=== PATIENT | male | born 1995 | race Caucasian/White ===

== ENCOUNTER 2017-09-27 12:56 | Emergency (ER) | payer OTHER, BC ==
[~2017-09-27] VITALS: Ht 188 cm; Wt 81.6 kg
--- OUTSIDE RECORDS SUMMARY | 2017-09-27 13:11 | XMS REPORT | Continuity of Care Document ---
Demographics Preferred Language Unknown Marital Status Unknown Restorationism Affiliation Unknown Race Unknown Ethnic Group Unknown Author Author [facility] Address Unknown Phone Unavailable Allergies Medications Problems Date Dx Coded Attending Type Code Diagnosis Diagnosed By 03/27/2013 381.10 OTITIS MEDIA CHRONIC SEROUS 03/27/2013 477.0 ALLERGIC RHINITIS DUE TO POLLEN 03/27/2013 782.3 Edema Anasarca 03/27/2013 919.5 INSECT BITE INFECTED Procedures Code Description Performed By Performed On J2930 SOLUMEDROL INJ Results Encounters ACCT No. Visit Date/Time Discharge Status Pt. Type Provider Facility Loc./Unit Complaint [id number] 03/27/2013 11:48:00 Document Registration
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
[2017-09-27] MEDS ORDERED: HYDR28.480 TP (13:33)
[2017-09-27] MEDS ORDERED: PIPERACILLIN SODIUM/TAZOBACTAM 4.5 GM in NS (IVPB) 100 ML IV ONE (14:30)
--- NOTE | 2017-09-27 14:42 | Diagnostic Imaging Report ---
PROCEDURE: CT head and CT cervical spine without contrast. TECHNIQUE: Multiple contiguous axial images were obtained through the brain and cervical spine without the use of intravenous contrast. Sagittal and coronal reformations through the cervical spine were then performed. INDICATION: Injury. FINDINGS: CT head: There is no intracranial hemorrhage, edema or mass effect. The brain parenchyma and domingo-white matter differentiation is preserved. No hydrocephalus. No extra-axial fluid collection is seen. The calvarium, the visualized portions of the paranasal sinuses and orbits appear grossly unremarkable. CT cervical spine: There is satisfactory alignment of the posterior spinal line and at the facet joints. There is a preserved vertebral body heights. Disc heights are also preserved. There is no widening of the predental space. The alignment of the lateral masses of C1 and C2 and the atlantooccipital joints is satisfactory. No fracture seen. IMPRESSION: CT head: Unremarkable exam. CT cervical spine: Unremarkable. No fracture seen. Dictated by: Dictated on workstation # [id number]
== END 2017-09-27 14:51 | disposition home or self-care (01) ==
LOC: ER 13:05
DX: S09.90XA Unspecified injury of head, initial encounter (principal); S16.1XXA Strain of muscle, fascia and tendon at neck level, initial encounter; V47.5XXA Car driver injured in collision with fixed or stationary object in traffic accident, initial encounter
CPT/HCPCS: 70450; 72125; 99281

== ENCOUNTER 2018-06-15 00:30 | Emergency (ER) | payer BC, OTHER ==
[~2018-06-15] VITALS: Ht 188 cm; Wt 90.7 kg
[~2018-06-15 00:30] MED LIST: HYDR28.480 TP
[2018-06-15] MEDS: TETRACAINE 0.5% OPHTH SOLN 4 ML BTL (SINGLE DOSE ONLY) ONE (01:00)
[2018-06-15] MEDS: FLUORESCEIN (FLUOR-I-STRIPS) 1 MG STRP ONE (01:00)
[2018-06-15] MEDS ORDERED: RX-CIPROFLOXACIN (CILOXAN) 0.3% OP SOLN 2.5 ML ONE (01:19)
[2018-06-15] MEDS: BSS 15 ML ONE (01:25)
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
[2018-06-15 01:30] VITALS: BP 142/70
[2018-06-15] MEDS: RX-CIPROFLOXACIN (CILOXAN) 0.3% OP SOLN 2.5 ML OP STA (01:32)
--- OUTSIDE RECORDS SUMMARY | 2018-06-15 07:15 | XMS REPORT ---
Author Author DIANA BLEVINS Organization [facility] Address [address] [place] [address] Care Team Providers Care Solution Design And Analysis Manager Name Role Phone DIANA BLEVINS Unavailable PROBLEMS Type Condition ICD9-CM Code [id number] Code Onset Dates Condition Status SNOMED Code Problem Anxiety F41.9 Active 11543705 Problem Absence attack G40.A09 Active 93357408 ALLERGIES No Information ENCOUNTERS Encounter Location Date Diagnosis [facility] [address] [address] Nov, Anxiety F41.9 [facility] [address] [address] Oct, Absence attack G40.A09 [facility] [address] [address] Oct, [facility] [address] [address] Sep, [facility] [id number] [place] [address] Sep, [facility] [address] [address] Sep, Absence attack G40.A09 and Anxiety F41.9 [facility] [address] [address] Jan, [facility] [address] [address] Jan, [facility] [address] [address] Jun, [facility] [address] [place] [phone] Mar, IMMUNIZATIONS No Known Immunizations SOCIAL HISTORY Never Assessed REASON FOR VISIT LVM PLAN OF CARE VITAL SIGNS MEDICATIONS Unknown Medications RESULTS No Results PROCEDURES No Known procedures INSTRUCTIONS MEDICATIONS ADMINISTERED No Known Medications
--- OUTSIDE RECORDS SUMMARY | 2018-06-15 07:15 | XMS REPORT ---
Author Author DIANA BLEVINS Organization [facility] Address [address] [place] [address] Care Team Providers Care Cap Coverer Name Role Phone DIANA BLEVINS Unavailable PROBLEMS Type Condition ICD9-CM Code [id number] Code Onset Dates Condition Status SNOMED Code Problem Anxiety F41.9 Active 24164399 Problem Absence attack G40.A09 Active 78580950 ALLERGIES No Known Allergies ENCOUNTERS Encounter Location Date Diagnosis [facility] [address] [address] Nov, Anxiety F41.9 [facility] [address] [address] Oct, Absence attack G40.A09 [facility] [id number] [place] [address] Oct, [facility] [id number] [place] [address] Sep, [facility] [id number] [place] [address] Sep, [facility] [id number] [place] [address] Sep, Absence attack G40.A09 and Anxiety F41.9 [facility] [id number] [place] [address] Jan, [facility] [address] [address] Jan, [facility] [id number] [place] [address] Jun, [facility] [address] [id number] [place] [address] Mar, IMMUNIZATIONS No Known Immunizations SOCIAL HISTORY Never Assessed REASON FOR VISIT Panicky----YAYAennettRDafne, reports having panic attacks and fainting while driving or riding in a vehicle PLAN OF CARE Activity Details Follow Up Will call after tests Reason: VITAL SIGNS Height 73 in 2017-10-07 Weight 180 lbs 2017-10-07 Temperature 98.2 degrees Fahrenheit 2017-10-07 Heart Rate 90 bpm 2017-10-07 Respiratory Rate 20 2017-10-07 BMI 23.75 kg/m2 2017-10-07 Blood pressure systolic 118 mmHg 2017-10-07 Blood pressure diastolic 70 mmHg 2017-10-07 MEDICATIONS Medication Instructions Dosage Frequency Start Date End Date Duration Status PredniSONE 20 mg 3 tablet by Oral route 1 time per day for 1 day2 Tablets 1 time per day for 5 days Mar, Not-Taking Citalopram Hydrobromide 20 mg Orally Once a day 1 tablet 24h Sep, 30 day(s) Active Benadryl 25 mg 1-2 capsule by Oral route every 4-6 hours PRN Mar, Not-Taking Keflex 500 mg 1 capsule by Oral route 3 times per day for 10 days Mar, Not-Taking cetirizine 10 mg 1 tablet by Oral route 1 daily Mar, Not -Taking RESULTS No Results PROCEDURES Procedure Date Ordered Result Body Site EEG 2017-10-07 N/A COMPREHEN METABOLIC PANEL Oct 07, 2017 VENIPUNCT, ROUTINE* Oct 07, 2017 INSTRUCTIONS MEDICATIONS ADMINISTERED No Known Medications
--- OUTSIDE RECORDS SUMMARY | 2018-06-15 07:15 | XMS REPORT ---
Author Author DIANA BLEVINS Organization [facility] Address [address] [place] [address] Care Team Providers Care Blueprint Reproducer Name Role Phone DIANA BLEVINS Unavailable PROBLEMS Type Condition ICD9-CM Code [id number] Code Onset Dates Condition Status SNOMED Code Problem Anxiety F41.9 Active 82760710 Problem Absence attack G40.A09 Active 43051549 ALLERGIES No Information ENCOUNTERS Encounter Location Date Diagnosis [facility] [address] [address] Nov, Anxiety F41.9 [facility] [address] [address] Oct, Absence attack G40.A09 [facility] [address] [address] Oct, [facility] [address] [address] Sep, [facility] [id number] [place] [address] Sep, [facility] [address] [address] Sep, Absence attack G40.A09 and Anxiety F41.9 [facility] [id number] [place] [address] Jan, [facility] [address] [address] Jan, [facility] [address] [address] Jun, [facility] [address] [place] [address] Mar, IMMUNIZATIONS No Known Immunizations SOCIAL HISTORY Never Assessed REASON FOR VISIT Refill request PLAN OF CARE VITAL SIGNS MEDICATIONS Medication Instructions Dosage Frequency Start Date End Date Duration Status Citalopram Hydrobromide 20 mg Orally Once a day 1 tablet 24h Sep, 30 day(s) Active RESULTS No Results PROCEDURES No Known procedures INSTRUCTIONS MEDICATIONS ADMINISTERED No Known Medications
--- OUTSIDE RECORDS SUMMARY | 2018-06-15 07:16 | XMS REPORT ---
Author Author DIANA BLEVINS Organization [facility] Address [address] [place] [address] Care Team Providers Care Packing Clerk Name Role Phone DIANA BLEVINS Unavailable PROBLEMS Type Condition ICD9-CM Code XGT24-SS Code Onset Dates Condition Status SNOMED Code Problem Anxiety F41.9 Active 74518104 Problem Absence attack G40.A09 Active 96771928 ALLERGIES No Information ENCOUNTERS Encounter Location Date Diagnosis [facility] [address] [address] Nov, [address].9 [facility] [address] [address] Oct, Absence attack G40.A09 [facility] [address] [address] Oct, [facility] [address] [address] Sep, [facility] [id number] [place] [address] Sep, [facility] [address] [address] Sep, Absence attack G40.A[address] [facility] [id number] [place] [address] Jan, [facility] [address] [address] Jan, [facility] [address] [address] Jun, [facility] [address] [place] [address] Mar, IMMUNIZATIONS No Known Immunizations SOCIAL HISTORY Never Assessed REASON FOR VISIT Disability paperwork PLAN OF CARE VITAL SIGNS MEDICATIONS Unknown Medications RESULTS No Results PROCEDURES No Known procedures INSTRUCTIONS MEDICATIONS ADMINISTERED No Known Medications
--- OUTSIDE RECORDS SUMMARY | 2018-06-15 07:16 | XMS REPORT ---
Author Author DIANA BLEVINS Organization [facility] Address [address] [place] [address] Care Team Providers Care Salesperson Recreational Vehicles Name Role Phone DIANA BLEVINS Unavailable PROBLEMS Type Condition ICD9-CM Code VHL08-BW Code Onset Dates Condition Status SNOMED Code Problem Anxiety F41.9 Active 99457716 Problem Absence attack G40.A09 Active 87569327 ALLERGIES No Information ENCOUNTERS Encounter Location Date Diagnosis [facility] [address] [address] Nov, Anxiety F41.9 [facility] [address] [address] Oct, Absence attack G40.A09 [facility] [address] [address] Oct, [facility] [address] [address] Sep, [facility] [id number] [place] [address] Sep, [facility] [address] [address] Sep, Absence attack G40.A09 and Anxiety F41.9 [facility] [address] [address] Jan, [facility] [address] [address] Jan, [facility] [address] [address] Jun, [facility] [address] [place] [address] Mar, IMMUNIZATIONS No Known Immunizations SOCIAL HISTORY Never Assessed REASON FOR VISIT Requests return call PLAN OF CARE VITAL SIGNS MEDICATIONS Unknown Medications RESULTS No Results PROCEDURES No Known procedures INSTRUCTIONS MEDICATIONS ADMINISTERED No Known Medications
--- OUTSIDE RECORDS SUMMARY | 2018-06-15 07:16 | XMS REPORT | Continuity of Care Document ---
Demographics Preferred Language Unknown Marital Status Unknown Mandaeism Affiliation Unknown Race Unknown Ethnic Group Unknown Author Author [facility] Address Unknown Phone Unavailable Allergies There is no data. Medications There is no data. Problems Date Dx Coded Attending Type Code Diagnosis Diagnosed By 03/27/2013 381.10 OTITIS MEDIA CHRONIC SEROUS 03/27/2013 477.0 ALLERGIC RHINITIS DUE TO POLLEN 03/27/2013 782.3 Edema Anasarca 03/27/2013 919.5 INSECT BITE INFECTED Procedures Code Description Performed By Performed On J2930 SOLUMEDROL INJ 03/27/2013 Results There is no data. Encounters ACCT No. Visit Date/Time Discharge Status Pt. Type Provider Facility Loc./Unit Complaint [id number] 03/27/2013 11:48:00 Document Registration
--- OUTSIDE RECORDS SUMMARY | 2018-06-15 07:16 | XMS REPORT ---
Author Author DIANA BLEVINS Organization [facility] Address [address] [place] [address] Care Team Providers Care Spinning And Winding Supervisor Name Role Phone DIANA BLEVINS Unavailable PROBLEMS Type Condition ICD9-CM Code TXW65-DA Code Onset Dates Condition Status SNOMED Code Problem Anxiety F41.9 Active 39861868 Problem Absence attack G40.A09 Active 39047107 ALLERGIES No Information ENCOUNTERS Encounter Location Date Diagnosis [facility] [address] [address] Nov, Anxiety F41.9 [facility] [address] [address] Oct, Absence attack G40.A09 [facility] [address] [address] Oct, [facility] [address] [address] Sep, [facility] [id number] [place] [address] Sep, [facility] [address] [address] Sep, Absence attack G40.A09 and Anxiety F41.9 [facility] [id number] [place] [address] Jan, [facility] [address] [address] Jan, [facility] [address] [address] Jun, [facility] [address] [place] [address] Mar, IMMUNIZATIONS No Known Immunizations SOCIAL HISTORY Never Assessed REASON FOR VISIT PLAN OF CARE VITAL SIGNS MEDICATIONS Unknown Medications RESULTS No Results PROCEDURES No Known procedures INSTRUCTIONS MEDICATIONS ADMINISTERED No Known Medications
== END 2018-06-15 01:30 | disposition home or self-care (01) ==
LOC: EDUNIT# 00:30 → ER 00:32
DX: T15.01XA Foreign body in cornea, right eye, initial encounter (principal); J45.909 Unspecified asthma, uncomplicated; F12.10 Cannabis abuse, uncomplicated; Z87.01 Personal history of pneumonia (recurrent); Z77.22 Contact with and (suspected) exposure to environmental tobacco smoke (acute) (chronic); Y92.59 Other trade areas as the place of occurrence of the external cause; Y99.0 Civilian activity done for income or pay
CPT/HCPCS: 99283

== ENCOUNTER 2019-01-31 19:54 | Emergency (ER) | payer OTHER ==
[~2019-01-31] VITALS: Ht 185.4 cm; Wt 97.5 kg
--- OUTSIDE RECORDS SUMMARY | 2019-01-31 20:20 | XMS REPORT ---
Author Author Migration, Doctor Organization [facility] Address Unknown Phone Unavailable Care Team Providers Care Run Lead Name Role Phone Migration, Doctor Unavailable Unavailable PROBLEMS Type Condition ICD9-CM Code [id number] Code Onset Dates Condition Status SNOMED Code Problem Absence attack G40.A09 Active 48978023 Problem Anxiety F41.9 Active [id number] ALLERGIES No Information ENCOUNTERS Encounter Location Date Diagnosis [place] [address] [address] Nov, Anxiety F41.9 [place] [address] [address] Oct, Absence attack G40.A09 [place] [address] [address] Oct, [facility] [place] [address] [place] [id number] [place] [phone] Sep, [facility] [place] [address] [id number] [place] [phone] Sep, [facility] [place] [id number] [place] [phone] Sep, Absence attack G40.A09 and Anxiety F41.9 [facility] [place] [address] [place] [id number] [place] [phone] Jan, [facility] [place] [address] [address] Jan, [facility] [place] [address] [address] Jun, [facility] [place] [address] [address] Mar, IMMUNIZATIONS No Known Immunizations SOCIAL HISTORY Never Assessed REASON FOR VISIT [facility] [place] VITAL SIGNS MEDICATIONS Medication Instructions Dosage Frequency Start Date End Date Duration Status Benadryl 25 mg 1-2 capsule by Oral route every 4-6 hours PRN Mar, Active PredniSONE 20 mg 3 tablet by Oral route 1 time per day for 1 day2 Tablets 1 time per day for 5 days Mar, Active Keflex 500 mg 1 capsule by Oral route 3 times per day for 10 days Mar, Active cetirizine 10 mg 1 tablet by Oral route 1 daily Mar, Active RESULTS No Results PROCEDURES No Known procedures INSTRUCTIONS MEDICATIONS ADMINISTERED No Known Medications
--- OUTSIDE RECORDS SUMMARY | 2019-01-31 20:20 | XMS REPORT | Continuity of Care Document ---
Demographics Preferred Language Unknown Marital Status Unknown Bahai Affiliation Unknown Race Unknown Ethnic Group Unknown Author Organization Unknown Address Unknown Allergies There is no data. Medications There [...] Status Pt. Type Provider Facility Loc./Unit Complaint [id number] 03/27/2013 11:48:00 Document Registration
--- NOTE | 2019-01-31 20:21 | ED Upper Extremity ---
General Chief Complaint: Upper Extremity Stated Complaint: L ARM PAIN Nursing Triage Note: PT REPORTS HAVING 200 POUND METAL OBJECT AT WORK FALL ON LEFT LOWER ARM. PT REPORTS PAIN WITH TINGLING. PT REPORTS PAIN WHEN MOVING FINGERS. Nursing Sepsis Screen: No Definite Risk Source: patient Exam Limitations: no limitations History of Present Illness Date Seen by Provider: Jan 31, 2019 Time Seen by Provider: 20:19 Initial Comments is to ER with reports of having a 200 pound metal object fall onto the volar surface of the left forearm while at work. He now has pain to this location and tingling to the fingers. He has a friend with compartment syndrome and is concerned about the Onset: just prior to arrival Severity: moderate Pain/Injury Location: left forearm Method of Injury: direct blow Modifying Factors: Worse With Movement Allergies and Home Medications Allergies Coded Allergies: No Known Drug Allergies (Unverified , 09/27/17) Patient Home Medication List Home Medication List Reviewed: Yes Review of Systems Constitutional: see HPI EENTM: see HPI Respiratory: no symptoms reported Cardiovascular: no symptoms reported Genitourinary: no symptoms reported Musculoskeletal: see HPI, other (does have pain with passive extension of the fingers to the volar surface.) Skin: no symptoms reported Psychiatric/Neurological: No Symptoms Reported Past Eqqdyut-Ezyiuq-Zecjez Hx Patient Social History Alcohol Use: Regular Use Number of Drinks Today: 0 Alcohol Beverage of Choice: Vodka Recreational Drug Use: No Drug of Choice: MARIJUANA IN THE PAST Smoking Status: Never a Smoker 2nd Hand Smoke Exposure: Yes Recent Foreign Travel: No Contact w/Someone Who Travel: No Recent Infectious Disease Expo: No Recent Hopitalizations: No Physical Abuse: No Sexual Abuse: No Immunizations Up To Date Tetanus Booster (TDap): Less than 5yrs PED Vaccines UTD: Yes Seasonal Allergies Seasonal Allergies: No Past Medical History Surgeries: Yes (LEFT LEG LACERATION- POST ACCIDENT) Respiratory: Yes Asthma, Pneumonia Currently Using CPAP: No Currently Using BIPAP: No Cardiac: Yes (LABILE BLOOD PRESSURE) Neurological: No Sexually Transmitted Disease: No HIV/AIDS: No Genitourinary: No Gastrointestinal: No Endocrine: No HEENT: No Cancer: No Psychosocial: No Integumentary: No Blood Disorders: No Physical Exam Vital Signs Vital Signs - First Documented 01/31/19 20:03 Temp 98.0 Pulse 83 Resp 16 B/P (MAP) 169/87 (114) Pulse Ox 96 Capillary Refill : Less Than 3 Seconds Height, Weight, BMI Height: 6'1.00" Weight: 215lbs. oz. 97.205742as; 21.09 BMI Method:Stated General Appearance: WD/WN, no apparent distress HEENT: PERRL/EOMI, normal ENT inspection Neck: non-tender, full range of motion Respiratory: no respiratory distress, no accessory muscle use Gastrointestinal: normal bowel sounds, non tender, soft Elbow/Forearm: Left ( abrasion down the aspect of the volar forearm.) Wrist: Yes normal inspection, Yes non-tender Hand: normal inspection, non-tender (capillary refill is brisk, sensation of the fingertips , does report a tingling sensation) Progress/Results/Core Measures Results/Orders My Orders Orders - ROSALIA MENESES APRN Forearm, Left, 2 Views (01/31/19 20:18) Hydrocodone/Apap 5/325 Tablet (Lortab 5 (01/31/19 20:30) Lidocaine 1% Inj 20 Ml (Xylocaine 1% Inj (01/31/19 20:30) Medications Given in ED Current Medications Medications Dose Ordered Sig/Hunter Route Start Time Stop Time Status Last Admin Dose Admin Acetaminophen/ Hydrocodone Bitart 1 tab ONCE ONCE PO 01/31/19 20:30 01/31/19 20:31 DC 01/31/19 20:27 1 TAB Lidocaine HCl 1 ml ONCE ONCE INJ 01/31/19 20:30 01/31/19 20:31 DC 01/31/19 20:27 1 ML Vital Signs/I&O 01/31/19 20:03 Temp 98.0 Pulse 83 Resp 16 B/P (MAP) 169/87 (114) Pulse Ox 96 Blood Pressure Mean: 114 Departure Communication (Admissions) 2100 the compartments of the left forearm were measured. The volar compartment was measured using the HiperScan intracompartmental pressure monitor system. Site was located, cleansed with chlorhexidine swab, anesthetized with 0.2 mL of lidocaine 1% without epinephrine, the needle from the HiperScan device was then inserted 1.5 cm deep, 0.3 cc of saline were injected in the pressure measured 11 mmHg.The mobile wad compartment/dorsal compartment were cleansed and anesthetized the same way. Pressures checked at 7mmHg and 9mmHg respectively. Additionally supporting the absence of compartment syndrome was the absence of any pain or tenderness to palpation proximal to the abrasion at the proximal forearm. All compartments soft and nontender at this location. Impression Primary Impression: Abrasion of left arm Additional Impression: Contusion of left arm Disposition: 01 HOME, SELF-CARE Condition: Stable Departure-Patient Inst. Decision time for Depature: 21:04 Referrals: NO,LOCAL PHYSICIAN (PCP/Family) Primary Care Physician Patient Instructions: Contusion (DC) Add. Discharge Instructions: 1. Follow up with your doctor next week 2. Return to Er for any concerns 3. Ice pack to this area at 30 minute intervals to help reduce pain and swelling. All discharge instructions reviewed with patient and/or family. Voiced understanding. ROSALIA MENESES LOCKSTITCH COLLAR SETTER Jan 31, 2019 20:21
[2019-01-31] MEDS ORDERED: LIDOCAINE 1% INJ 20 ML 20 ML VIAL INJ ONE (20:30)
[2019-01-31] MEDS ORDERED: HYDROcodone/APAP 5 MG/325 MG (LORTAB) TAB PO ONE (20:30)
--- NOTE | 2019-01-31 20:49 | Diagnostic Imaging Report ---
EXAMINATION: Left forearm, frontal and lateral views, INDICATION: Left forearm injury sustained when 200 pound metallic object fell on arm. COMPARISON: None available. FINDING: No fracture or acute osseous abnormality. Bony alignment is maintained. Well-corticated ossific density adjacent to the ulnar styloid likely reflects accessory ossicle or sequela of remote trauma. The soft tissues are unremarkable. No elbow joint effusion is demonstrated. IMPRESSION: No acute fracture or dislocation. Dictated by: Dictated on workstation # [id number]
[2019-01-31 21:13] VITALS: BP 169/87
[2019-01-31] MEDS ORDERED: RX-HYDROCODONE/APAP 5/325 MG #4 TAB PK PO PRN (21:15)
== END 2019-01-31 21:13 | disposition home or self-care (01) ==
LOC: EDUNIT# 19:54 → ER 19:55
DX: S50.12XA Contusion of left forearm, initial encounter (principal); J45.909 Unspecified asthma, uncomplicated; F12.10 Cannabis abuse, uncomplicated; Z77.22 Contact with and (suspected) exposure to environmental tobacco smoke (acute) (chronic); Z87.01 Personal history of pneumonia (recurrent); W20.0XXA Struck by falling object in cave-in, initial encounter; Y92.59 Other trade areas as the place of occurrence of the external cause; Y99.0 Civilian activity done for income or pay
CPT/HCPCS: 73090

== ENCOUNTER 2019-04-23 14:52 | Emergency (ER) | payer OTHER ==
[~2019-04-23] VITALS: Ht 185.4 cm; Wt 104.3 kg
[2019-04-23] MEDS ORDERED: LACTATED RINGERS 1,000 ML IV ONE (14:58)
--- NOTE | 2019-04-23 14:58 | ED Neurological Problem ---
General Stated Complaint: HEAT EXPOSURE Source: patient, RN notes reviewed Exam Limitations: no limitations History of Present Illness Date Seen by Provider: Apr 23, 2019 Time Seen by Provider: 14:58 Initial Comments Patient brought into the ED from parking lot where he was found laying of the ground by his car. States he has felt bad since approximately 09:00 this AM. Has reportedly been out in the heat and humidity since 08:00. Similar episode a couple years ago when he was found to be dehydrated. Apparently also had a episode of passing out for an unknown period of time this AM while @ work. 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) Associated Symptoms: denies symptoms (x/ as noted.), weakness Allergies and Home Medications Allergies Coded Allergies: No Known Drug Allergies (Unverified , 09/27/17) Patient Home Medication List Home Medication List Reviewed: Yes Review of Systems Review of Systems Constitutional: see HPI, diaphoresis, weakness Cardiovascular: see HPI, other (near syncope) Psychiatric/Neurological: See HPI, Weakness Endocrine: See HPI, Excessive Sweating All Other Systems Reviewed Negative Unless Noted: Yes (Negative excepted noted.) Past Itmtvkg-Nrhmex-Uvvqka Hx Patient Social History Alcohol Beverage of Choice: Vodka Drug of Choice: MARIJUANA IN THE PAST 2nd Hand Smoke Exposure: Yes Recent Hopitalizations: No Immunizations Up To Date Tetanus Booster (TDap): Less than 5yrs PED Vaccines UTD: Yes Seasonal Allergies Seasonal Allergies: No Past Medical History Surgeries: Yes (LEFT LEG LACERATION- POST ACCIDENT) Respiratory: Yes Asthma, Pneumonia Currently Using CPAP: No Currently Using BIPAP: No Cardiac: Yes (LABILE BLOOD PRESSURE) Neurological: No Sexually Transmitted Disease: No HIV/AIDS: No Genitourinary: No Gastrointestinal: No Endocrine: No HEENT: No Cancer: No Psychosocial: No Integumentary: No Blood Disorders: No Physical Exam Vital Signs Vital Signs - First Documented 04/23/19 14:52 Temp 99.0 Pulse 105 Resp 26 B/P (MAP) 149/89 (109) Pulse Ox 100 Capillary Refill : Height, Weight, BMI Height: 6'1.00" Weight: 215lbs. oz. 97.320192ww; 21.09 BMI Method:Stated General Appearance: WD/WN, no apparent distress HEENT: PERRL/EOMI Respiratory: respiratory distress (mild) Cardiovascular: tachycardia Neurologic/Psychiatric: no motor/sensory deficits, alert, oriented x 3 Skin: diaphoresis Progress/Results/Core Measures Results/Orders Lab Results Laboratory Tests Test 04/23/19 14:55 04/23/19 15:15 04/23/19 15:39 Range/Units White Blood Count 14.6 H 4.3-11.0 10^3/uL Red Blood Count 5.71 4.35-5.85 10^6/uL Hemoglobin 16.7 13.3-17.7 G/DL Hematocrit 48 40-54 % Mean Corpuscular Volume 84 80-99 FL Mean Corpuscular Hemoglobin 29 25-34 PG Mean Corpuscular Hemoglobin Concent 35 32-36 G/DL Red Cell Distribution Width 12.0 10.0-14.5 % Platelet Count 333 130-400 10^3/uL Mean Platelet Volume 9.2 7.4-10.4 FL Neutrophils (%) (Auto) 71 42-75 % Lymphocytes (%) (Auto) 21 12-44 % Monocytes (%) (Auto) 8 0-12 % Eosinophils (%) (Auto) 0 0-10 % Basophils (%) (Auto) 0 0-10 % Neutrophils # (Auto) 10.3 H 1.8-7.8 X 10^3 Lymphocytes # (Auto) 3.0 1.0-4.0 X 10^3 Monocytes # (Auto) 1.2 H 0.0-1.0 X 10^3 Eosinophils # (Auto) 0.0 0.0-0.3 10^3/uL Basophils # (Auto) 0.0 0.0-0.1 10^3/uL Neutrophils % (Manual) 69 % Lymphocytes % (Manual) 22 % Monocytes % (Manual) 7 % Eosinophils % (Manual) 0 % Basophils % (Manual) 0 % Band Neutrophils 2 % Blood Morphology Comment NORMAL Sodium Level 137 135-145 MMOL/L Potassium Level 3.6 3.6-5.0 MMOL/L Chloride Level 95 L 98-107 MMOL/L Carbon Dioxide Level 20 L 21-32 MMOL/L Anion Gap 22 H 5-14 MMOL/L Blood Urea Nitrogen 19 H 7-18 MG/DL Creatinine 1.63 H 0.60-1.30 MG/DL Estimat Glomerular Filtration Rate 54 BUN/Creatinine Ratio 12 Glucose Level 102 70-105 MG/DL Calcium Level 10.4 H 8.5-10.1 MG/DL Corrected Calcium 8.5-10.1 MG/DL Magnesium Level 1.8 1.8-2.4 MG/DL Total Bilirubin 0.8 0.1-1.0 MG/DL Aspartate Amino Transf (AST/SGOT) 18 5-34 U/L Alanine Aminotransferase (ALT/SGPT) 24 0-55 U/L Alkaline Phosphatase 78 40-136 U/L Myoglobin 90.5 10.0-92.0 NG/ML Troponin I < 0.30 <0.30 NG/ML Total Protein 8.3 H 6.4-8.2 GM/DL Albumin 5.2 H 3.2-4.5 GM/DL Glucometer 85 70-110 MG/DL Urine Color YELLOW Urine Clarity CLEAR Urine pH 6.0 5-9 Urine Specific [place] 1.020 1.016-1.022 Urine Protein NEGATIVE NEGATIVE Urine Glucose (UA) NEGATIVE NEGATIVE Urine Ketones NEGATIVE NEGATIVE Urine Nitrite NEGATIVE NEGATIVE Urine Bilirubin NEGATIVE NEGATIVE Urine Urobilinogen 0.2 NORMAL MG/DL Urine Leukocyte Esterase NEGATIVE NEGATIVE Urine RBC (Auto) NEGATIVE NEGATIVE Urine RBC NONE /HPF Urine WBC 2-5 /HPF Urine Crystals PRESENT H /LPF Urine Calcium Oxalate Crystals 1+ /LPF Urine Bacteria NONE /HPF Urine Casts PRESENT /LPF Urine Hyaline Casts >50 H /LPF Urine Mucus SMALL H /LPF Urine Culture Indicated NO Urine Opiates Screen NEGATIVE NEGATIVE Urine Oxycodone Screen NEGATIVE NEGATIVE Urine Methadone Screen NEGATIVE NEGATIVE Urine Propoxyphene Screen NEGATIVE NEGATIVE Urine Barbiturates Screen NEGATIVE NEGATIVE Ur Tricyclic Antidepressants Screen NEGATIVE NEGATIVE Urine Phencyclidine Screen NEGATIVE NEGATIVE Urine Amphetamines Screen NEGATIVE NEGATIVE Urine Methamphetamines Screen NEGATIVE NEGATIVE Urine Benzodiazepines Screen NEGATIVE NEGATIVE Urine Cocaine Screen NEGATIVE NEGATIVE Urine Cannabinoids Screen POSITIVE H NEGATIVE My Orders Orders - MATY NGUYỄN DO Accucheck Stat ONCE (04/23/19 14:58) Ed Iv/Invasive Line Start (04/23/19 14:58) Ekg Tracing (04/23/19 14:58) Orthostatic Vital Signs (Adult (04/23/19 14:58) Cbc With Automated Diff (04/23/19 14:58) Comprehensive Metabolic Panel (04/23/19 14:58) Creatine Kinase (04/23/19 14:58) Drug Screen Stat (Urine) (04/23/19 14:58) Magnesium (04/23/19 14:58) Ua Culture If Indicated (04/23/19 14:58) Myoglobin Serum (04/23/19 14:58) Troponin I (04/23/19 14:58) Ed Iv/Invasive Line Start (04/23/19 14:58) Lactated Ringers (Lr 1000 Ml Iv Solution (04/23/19 14:58) Manual Differential (04/23/19 14:55) Ns Iv 1000 Ml (Sodium Chloride 0.9%) (04/23/19 15:49) Medications Given in ED Vital Signs/I&O 04/23/19 04/23/19 04/23/19 14:52 15:29 16:35 Temp 99.0 Pulse 105 80 93 91 70 Resp 26 16 B/P (MAP) 149/89 (109) 135/73 (93) 138/77 (97) 138/85 (102) 134/84 (101) Pulse Ox 100 98 04/24/19 00:00 Intake Total 2000 ml Balance 2000 ml Progress Progress Note : Progress Note Much improved p/ IVF's. Initial ECG Impression Date: Apr 23, 2019 Initial ECG Impression Time: 15:15 Initial ECG Rate: 93 Initial ECG Rhythm: Normal Sinus Initial ECG Intervals: Normal Initial ECG Impression: Normal Initial ECG Comparisson: No Previous ECG Available Departure Impression Primary Impression: Near syncope Additional Impressions: Heat exhaustion Acute renal insufficiency Disposition: 01 HOME, SELF-CARE Condition: Improved Departure-Patient Inst. Decision time for Depature: 16:30 Referrals: [facility] Patient Instructions: Dehydration, Adult (DC), Heat Exhaustion and Heat Stroke (DC), Near Fainting (DC) Add. Discharge Instructions: NEED TO STAY WELL HYDRATED WITH THE CURRENT HEAT AND ESPECIALLY HUMIDITY. MATY NGUYỄN DO Apr 23, 2019 14:58
--- OUTSIDE RECORDS SUMMARY | 2019-04-23 15:08 | XMS REPORT ---
Author Author Migration, Doctor Organization [facility] Address Unknown Phone Unavailable Care Team Providers Care Silica Filter Operator Name Role Phone Migration, Doctor Unavailable Unavailable PROBLEMS Type Condition ICD9-CM Code [id number] Code Onset Dates Condition Status SNOMED Code Problem Absence attack G40.A09 Active 58066784 Problem Anxiety F41.9 Active 61416285 ALLERGIES No Information ENCOUNTERS Encounter Location Date Diagnosis [place] [address] [address] Mar, [facility] [address] [address] Jan, [facility] [address] [address] Nov, Anxiety F41.9 [place] [address] [address] Oct, Absence attack G40.A09 [facility] [address] [place] [id number] [place] [phone] Oct, [facility] [address] [id number] [place] [phone] Sep, [facility] [address] [address] Sep, [facility] [address] [place] [id number] [place] [phone] Sep, Absence attack G40.A09 and Anxiety F41.9 [facility] [address] [place] [id number] [place] [address] Jan, [facility] [address] [address] Jan, [facility] [address] [facility] [id number] [address] Jun, 2013 [facility] [address] [facility] [id number] [place] [address] Mar, IMMUNIZATIONS No Known Immunizations SOCIAL HISTORY Never Assessed REASON FOR VISIT [facility] [place] VITAL SIGNS MEDICATIONS Unknown Medications RESULTS No Results PROCEDURES No Known procedures INSTRUCTIONS MEDICATIONS ADMINISTERED No Known Medications
--- OUTSIDE RECORDS SUMMARY | 2019-04-23 15:08 | XMS REPORT | Continuity of Care Document ---
Demographics Preferred Language Unknown Marital Status Unknown Alevism Affiliation Unknown Race Unknown Ethnic Group Unknown [...] Performed On J2930 SOLUMEDROL INJ 03/27/2013 Results Test Result Range CMP - 10/07/17 12:18 GLUCOSE 79 mg/dL 65-99 UREA NITROGEN (BUN) 11 mg/dL 7-20 CREATININE 1.03 mg/dL 0.60-1.26 eGFR NON-AFR. [place] 105 mL/min/1.73m2 > OR=60 eGFR 121 mL/min/1.73m2 > OR=60 BUN/CREATININE RATIO NOT APPLICABLE (calc) 6-22 SODIUM 141 mmol/L 135-146 POTASSIUM 4.3 mmol/L 3.8-5.1 CHLORIDE 104 mmol/L 98-110 CARBON DIOXIDE 31 mmol/L 20-31 CALCIUM 9.4 mg/dL 8.9-10.4 PROTEIN, TOTAL 6.5 g/dL 6.3-8.2 ALBUMIN 4.5 g/dL 3.6-5.1 GLOBULIN 2.0 g/dL (calc) 2.1-3.5 ALBUMIN/GLOBULIN RATIO 2.3 (calc) 1.0-2.5 BILIRUBIN, TOTAL 0.9 mg/dL 0.2-1.1 ALKALINE PHOSPHATASE 51 U/L 48-230 AST 15 U/L 12-32 ALT 13 U/L 8-46 Encounters ACCT No. Visit Date/Time Discharge Status Pt. Type Provider Facility Loc./Unit Complaint [id number] 03/27/2013 11:48:00 Document Registration [id number] 03/23/2019 14:00:00 03/23/2019 23:59:59 CLS Outpatient GEN [facility] [id number] 10/07/2017 11:40:00 Document Registration
[2019-04-23 15:12] LABS: BASOPHILS % (AUTO) 0 % (0-10); EOSINOPHILS % (AUTO) 0 % (0-10); HEMATOCRIT 48 % (40-54); HEMOGLOBIN 16.7 G/DL (13.3-17.7); LYMPHOCYTES % (AUTO) 21 % (12-44); MEAN CORPUSCULAR HEMOGLOBIN 29 PG (25-34); MEAN CORPUSCULAR HGB CONC 35 G/DL (32-36); MEAN CORPUSCULAR VOLUME 84 FL (80-99); MEAN PLATELET VOLUME 9.2 FL (7.4-10.4); MONOCYTES # (AUTO) 1.2 X 10^3 (0.0-1.0); MONOCYTES % (AUTO) 8 % (0-12); NEUTROPHILS # (AUTO) 10.3 X 10^3 (1.8-7.8); NEUTROPHILS % (AUTO) 71 % (42-75); PLATELET COUNT 333 10^3/uL (130-400); WHITE BLOOD COUNT 14.6 10^3/uL (4.3-11.0)
[2019-04-23 15:26] LABS: BUN/CREATININE RATIO 12; CARBON DIOXIDE 20 MMOL/L (21-32); CHLORIDE 95 MMOL/L (98-107); CREATININE SERUM 1.63 MG/DL (0.60-1.30); GFR ESTIMATED 54; GLUCOSE 102 MG/DL (70-105); POTASSIUM 3.6 MMOL/L (3.6-5.0); SODIUM 137 MMOL/L (135-145)
[2019-04-23 15:27] LABS: ALANINE AMINOTRANSFERASE 24 U/L (0-55); ALBUMIN 5.2 GM/DL (3.2-4.5); ALKALINE PHOSPHATASE 78 U/L (40-136); BAND NEUTROPHILS 2 %; BASOPHILS % (MANUAL) 0 %; BILIRUBIN,TOTAL 0.8 MG/DL (0.1-1.0); CALCIUM 10.4 MG/DL (8.5-10.1); EOSINOPHILS % (MANUAL) 0 %; LYMPHOCYTES % (MANUAL) 22 %; MAGNESIUM 1.8 MG/DL (1.8-2.4); MONOCYTES % (MANUAL) 7 %; NEUTROPHILS % (MANUAL) 69 %; RBC MORPH NORMAL; TOTAL PROTEIN 8.3 GM/DL (6.4-8.2)
[2019-04-23 15:29] VITALS: BP_SYST 134; BP_SYST 135; BP_SYST 138; BP_DIAS 73; BP_DIAS 84; BP_DIAS 85
[2019-04-23] MEDS ORDERED: NS IV 1000 ML 1,000 ML IV SCH ×2 (15:49→16:00)
[2019-04-23 15:54] LABS: CLARITY,URINE CLEAR; COLOR,URINE YELLOW; GLUCOSE, URINE (UA) NEGATIVE (NEGATIVE); KETONES,URINE NEGATIVE (NEGATIVE); NITRITE,URINE NEGATIVE (NEGATIVE); PROTEIN,URINE NEGATIVE (NEGATIVE)
[2019-04-23 15:55] LABS: BILIRUBIN,URINE NEGATIVE (NEGATIVE); CALCIUM OXALATE CRYSTALS,UR 1+ /LPF; HYALINE CASTS, URINE >50 /LPF; LEUKOCYTE ESTERASE ,URINE NEGATIVE (NEGATIVE); UROBILINOGEN,URINE 0.2 MG/DL (NORMAL)
[2019-04-23 16:02] LABS: AMPHETAMINE SCREEN, URINE NEGATIVE (NEGATIVE); BARBITURATE SCREEN URINE NEGATIVE (NEGATIVE); BENZODIAZEPINES SCREEN URINE NEGATIVE (NEGATIVE); CANNABINOID SCREEN, URINE POSITIVE (NEGATIVE); COCAINE SCREEN URINE NEGATIVE (NEGATIVE); METHADONE STAT NEGATIVE (NEGATIVE); METHAMPHETAMINE SCREEN URINE S NEGATIVE (NEGATIVE); OPIATE SCREEN URINE NEGATIVE (NEGATIVE); OXYCODONE STAT NEGATIVE (NEGATIVE); PROPOXYPHENE STAT NEGATIVE (NEGATIVE); TRICYCLIC ANTIDEPRESSANTS SCRE NEGATIVE (NEGATIVE)
[2019-04-23 16:35] VITALS: BP 138/77
[2019-04-24 10:46] LABS: CREATINE KINASE 135 U/L (30-200)
== END 2019-04-23 16:36 | disposition home or self-care (01) ==
LOC: EDUNIT# 14:52 → ER FS 14:53
DX: T67.5XXA Heat exhaustion, unspecified, initial encounter (principal); R55 Syncope and collapse; N28.9 Disorder of kidney and ureter, unspecified; J45.909 Unspecified asthma, uncomplicated; Z87.01 Personal history of pneumonia (recurrent); Z77.22 Contact with and (suspected) exposure to environmental tobacco smoke (acute) (chronic)
CPT/HCPCS: 36415; 80053; 80306; 81000; 82550; 82962; 83735; 83874; 84484; 85007; 85027; 93005; 96360

== ENCOUNTER 2019-06-29 09:52 | Emergency (ER) | payer OTHER ==
[~2019-06-29] VITALS: Ht 185 cm; Wt 95.0 kg
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
[2019-06-29 11:15] LABS: BASOPHILS % (AUTO) 0 % (0-10); EOSINOPHILS % (AUTO) 0 % (0-10); HEMATOCRIT 45 % (40-54); HEMOGLOBIN 15.5 G/DL (13.3-17.7); LYMPHOCYTES # (AUTO) 0.9 X 10^3 (1.0-4.0); LYMPHOCYTES % (AUTO) 17 % (12-44); MEAN CORPUSCULAR HEMOGLOBIN 29 PG (25-34); MEAN CORPUSCULAR HGB CONC 34 G/DL (32-36); MEAN CORPUSCULAR VOLUME 85 FL (80-99); MEAN PLATELET VOLUME 9.4 FL (7.4-10.4); MONOCYTES % (AUTO) 17 % (0-12); NEUTROPHILS # (AUTO) 3.6 X 10^3 (1.8-7.8); NEUTROPHILS % (AUTO) 65 % (42-75); PLATELET COUNT 233 10^3/uL (130-400); RED CELL DISTRIBUTION WIDTH 12.7 % (10.0-14.5); WHITE BLOOD COUNT 5.6 10^3/uL (4.3-11.0)
[2019-06-29] MEDS ORDERED: ONDANSETRON 4 MG/2 ML (SDV) Z0FRAN IVP ONE (11:15)
[2019-06-29] MEDS ORDERED: NS IV 1000 ML 1,000 ML IV SCH (11:15)
[2019-06-29 11:32] LABS: ALANINE AMINOTRANSFERASE 19 U/L (0-55); ALBUMIN 4.8 GM/DL (3.2-4.5); ALKALINE PHOSPHATASE 60 U/L (40-136); BILIRUBIN,TOTAL 0.5 MG/DL (0.1-1.0); BUN/CREATININE RATIO 9; CALCIUM 9.7 MG/DL (8.5-10.1); CARBON DIOXIDE 23 MMOL/L (21-32); CHLORIDE 104 MMOL/L (98-107); CREATININE SERUM 1.29 MG/DL (0.60-1.30); GFR ESTIMATED > 60; GLUCOSE 96 MG/DL (70-105); POTASSIUM 3.6 MMOL/L (3.6-5.0); SODIUM 139 MMOL/L (135-145); TOTAL PROTEIN 7.7 GM/DL (6.4-8.2)
[2019-06-29 11:33] LABS: LIPASE 9 U/L (8-78)
--- NOTE | 2019-06-29 11:34 | Diagnostic Imaging Report ---
Indication: Nausea, vomiting and cough. Time of exam: 11:23 AM No prior studies are available for comparison. The heart size is normal. The pulmonary vascularity is unremarkable. The lungs are clear. No infiltrate, effusion or pneumothorax is detected. Impression: No acute cardiopulmonary process is detected. Dictated by: Dictated on workstation # [id number]
[2019-06-29] MEDS ORDERED: ONDA4TAB11 PO (11:59)
[2019-06-29 12:06] LABS: BILIRUBIN,URINE NEGATIVE (NEGATIVE); CLARITY,URINE CLEAR; COLOR,URINE YELLOW; GLUCOSE, URINE (UA) NEGATIVE (NEGATIVE); KETONES,URINE 2+ (NEGATIVE); LEUKOCYTE ESTERASE ,URINE 1+ (NEGATIVE); NITRITE,URINE NEGATIVE (NEGATIVE); PH,URINE 5 (5-9); PROTEIN,URINE 2+ (NEGATIVE); UROBILINOGEN,URINE 4 MG/DL (NORMAL)
[2019-06-29 12:14] LABS: BACTERIA,URINE FEW /HPF
[2019-06-29 12:25] LABS: AMPHETAMINE SCREEN, URINE NEGATIVE (NEGATIVE); BARBITURATE SCREEN URINE NEGATIVE (NEGATIVE); BENZODIAZEPINES SCREEN URINE NEGATIVE (NEGATIVE); CANNABINOID SCREEN, URINE POSITIVE (NEGATIVE); COCAINE SCREEN URINE NEGATIVE (NEGATIVE); METHADONE STAT NEGATIVE (NEGATIVE); METHAMPHETAMINE SCREEN URINE S POSITIVE (NEGATIVE); OPIATE SCREEN URINE NEGATIVE (NEGATIVE); OXYCODONE STAT NEGATIVE (NEGATIVE); PROPOXYPHENE STAT NEGATIVE (NEGATIVE); TRICYCLIC ANTIDEPRESSANTS SCRE NEGATIVE (NEGATIVE)
[2019-06-29] MEDS ORDERED: HYOS0.1283 SL (12:31)
[2019-06-29 15:05] VITALS: BP 157/88
== END 2019-06-29 12:29 | disposition home or self-care (01) ==
LOC: EDUNIT# 09:52 → ER 09:53
DX: R19.7 Diarrhea, unspecified (principal); R11.2 Nausea with vomiting, unspecified; I10 Essential (primary) hypertension; J45.909 Unspecified asthma, uncomplicated; Z77.22 Contact with and (suspected) exposure to environmental tobacco smoke (acute) (chronic)
CPT/HCPCS: 36415; 71046; 80053; 80306; 81000; 83690; 85025; 87088; 87804

== ENCOUNTER 2019-07-01 01:44 | Emergency (ER) | payer OTHER ==
[~2019-07-01] VITALS: Ht 185.9 cm; Wt 95.2 kg
[~2019-07-01 01:44] MED LIST changes: +HYOS0.1283 SL; +ONDA4TAB11 PO
[2019-07-01] MEDS ORDERED: PROMETHAZINE 25 MG (PHENERGAN) TAB PO ONE (02:15)
[2019-07-01] MEDS ORDERED: PROC-1 PO (02:16)
[2019-07-01 02:18] VITALS: BP 133/74
--- NOTE | 2019-07-01 05:25 | ED Cough/URI ---
General Chief Complaint: Cough/Cold/Flu Symptoms Stated Complaint: VOMITING Nursing Triage Note: Patient states that he was seen in the ER in [place] on 06/29/19 for the same symptoms. They stated that he was given zofran and sent home. Patient presents with sore throat, "ripped tonsils", and N/V. Patient is taken into room via wheelchair due to complains of weakness. 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 There is no bleeding noted or reported. Patient also states that he is unable to keep anything down and states that he vomits bile. Sepsis Screen: No Definite Risk Source: patient Exam Limitations: no limitations History of Present Illness Date Seen by Provider: Jul 01, 2019 Time Seen by Provider: 02:00 Initial Comments Patient is a 23-year-old male presents with cough, sore throat and nausea vomiting. Patient states nausea and vomiting is been ongoing for 2 weeks. Patient was evaluated at [facility] emergency department 2 days ago for the same but prescribed Zofran. Patient states he took Zofran which has not helped. Coughing is primarily posttussive. No diarrhea. Patient noted to have a fever and ED arrival. No medications taken for fever. Patient expresses concern that he may have ripped his tonsil off from coughing so hard. Denies any oral bleeding Timing/Duration: intermittent Severity/Quality: moderate Prior Episodes/Possible Cause: other Modifying Factors: Improves With Other Associated Symptoms: sore throat Allergies and Home Medications Allergies Coded Allergies: No Known Drug Allergies (Unverified , 09/27/17) Home Medications Hyoscyamine Sulfate 0.125 Mg Tab.subl, 0.25 MG SL Q6H PRN for ABDOMINAL PAIN Prescribed by: ROSALIA MENESES on 06/29/19 1231 Ondansetron 4 Mg Tab.rapdis, 8 MG PO Q6H PRN for NAUSEA/VOMITING Prescribed by: ROSALIA MENESES on 06/29/19 1159 Prochlorperazine Maleate 10 Mg Tablet, 10 MG PO Q8H PRN for NAUSEA/VOMITING-2ND LINE Prescribed by: DEB QUEEN on 07/01/19 0216 Patient Home Medication List Home Medication List Reviewed: Yes Review of Systems Review of Systems Constitutional: see HPI EENTM: see HPI Respiratory: see HPI Cardiovascular: see HPI Gastrointestinal: no symptoms reported Past Zkjbklu-Qorrqy-Mwmexd Hx Past Med/Social Hx: Reviewed Nursing Past Med/Soc Hx Patient Social History Alcohol Use: Denies Use Number of Drinks Today: FF Alcohol Beverage of Choice: Vodka Recreational Drug Use: Yes Drug of Choice: MARIJUANA- used in the past week Smoking Status: Never a Smoker 2nd Hand Smoke Exposure: Yes Recent Foreign Travel: No Contact w/Someone Who Travel: No Recent Infectious Disease Expo: No Recent Hopitalizations: No Physical Abuse: No Sexual Abuse: No Mistreated: No Fear: No Immunizations Up To Date Tetanus Booster (TDap): Less than 5yrs PED Vaccines UTD: Yes Seasonal Allergies Seasonal Allergies: Yes Past Medical History Surgeries: Yes (LEFT LEG SURGERY AFTER LAC) Respiratory: No Asthma, Pneumonia Currently Using CPAP: No Currently Using BIPAP: No Cardiac: Yes Hypertension, Hypotension Neurological: No Sexually Transmitted Disease: No HIV/AIDS: No Genitourinary: Yes Kidney Stones Gastrointestinal: No Musculoskeletal: No Endocrine: No HEENT: No Cancer: No Psychosocial: No Integumentary: No Blood Disorders: No Physical Exam Vital Signs - First Documented 07/01/19 01:47 Temp 38.8 Pulse 107 Resp 20 B/P (MAP) 133/74 (93) Pulse Ox 96 O2 Delivery Room Air Capillary Refill : Less Than 3 Seconds Height: 6'1.00" Weight: 230lbs. oz. 104.795910lf; 27.00 BMI Method:Stated General Appearance: WD/WN, no apparent distress Eyes: Bilateral Eye Normal Inspection, Bilateral Eye PERRL HEENT: PERRL/EOMI, TMs normal, pharynx normal Neck: non-tender, full range of motion, supple Respiratory: chest non-tender, lungs clear, normal breath sounds, no respiratory distress Cardiovascular: regular rate, rhythm, no edema Gastrointestinal: normal bowel sounds, non tender, soft Extremities: normal range of motion, non-tender, normal inspection Neurologic/Psychiatric: bight maker II-XII nml as tested, no motor/sensory deficits, oriented x 3 Skin: warm/dry Focused Exam Sepsis Stage: Ruled Out Progress/Results/Core Measures Suspected Sepsis Recent Fever Within 48 Hours: Yes Infection Criteria Present: None New/Unexplained Altered Menta: No Sepsis Screen: No Definite Risk SIRS Temperature: Pulse: 107 Respiratory Rate: 20 Blood Pressure 133 /74 Mean: 93 Results/Orders My Orders Orders - DEB QUEEN DO Promethazine Tablet (Phenergan Tablet) (07/01/19 02:15) Medications Given in ED Current Medications Medications Dose Ordered Sig/Hunter Route Start Time Stop Time Status Last Admin Dose Admin Promethazine HCl 25 mg ONCE ONCE PO 07/01/19 02:15 07/01/19 02:16 DC 07/01/19 02:14 25 MG Vital Signs/I&O 07/01/19 07/01/19 07/01/19 01:47 01:47 02:18 Temp 38.8 38.8 Pulse 107 107 Resp 20 20 B/P (MAP) 133/74 (93) 133/74 (93) Pulse Ox 96 96 O2 Delivery Room Air Room Air Room Air Capillary Refill : Less Than 3 Seconds Blood Pressure Mean: 93 Departure Communication (Admissions) Benign physical exam. No vomiting in the ED. Nausea medication given. Recommend supportive care with PCP follow-up. Courtesy work note provided. Impression Primary Impression: Nausea & vomiting Additional Impression: Bronchitis Disposition: 01 HOME, SELF-CARE Condition: Improved Departure-Patient Inst. Patient Instructions: Acute Bronchitis, Adult (DC), Nausea and Vomiting, Adult (DC) Add. Discharge Instructions: Please continu zofran and take compazine as needed for additional nausea relief. Take Tylenol or ibuprofen as needed for fever. Drink clear liquids only for the next 12-24 and increase to bland diet as tolerated. Follow-up with local PCP early next week for reevaluation. All discharge instructions reviewed with patient and/or family. Voiced un derstanding. Scripts Prochlorperazine Maleate (Compazine) 10 Mg Tablet 10 MG PO Q8H PRN for NAUSEA/VOMITING-2ND LINE, #10 TAB Prov: DEB QUEEN DO 07/01/19 Work/School Note: Work Release Form Date Seen in the Emergency Department: Jul 02, 2019 Return to Work: Jul 03, 2019 DEB QUEEN DO Jul 01, 2019 05:25
== END 2019-07-01 02:20 | disposition home or self-care (01) ==
LOC: EDUNIT# 01:44 → ER FS 01:45
DX: R11.2 Nausea with vomiting, unspecified (principal); J45.909 Unspecified asthma, uncomplicated; I10 Essential (primary) hypertension; Z87.01 Personal history of pneumonia (recurrent); Z77.22 Contact with and (suspected) exposure to environmental tobacco smoke (acute) (chronic); Z87.442 Personal history of urinary calculi
CPT/HCPCS: 99283

== ENCOUNTER 2019-10-24 07:04 | Emergency (ER) | payer OTHER ==
[~2019-10-24] VITALS: Ht 185 cm; Wt 95.4 kg
[~2019-10-24 07:04] MED LIST changes: +PROC-1 PO
[2019-10-24] MEDS ORDERED: TETRACAINE 0.5% OPHTH SOLN 4 ML BTL (SINGLE DOSE ONLY) OP ONE (07:45)
[2019-10-24] MEDS ORDERED: BSS 15 ML IR ONE (07:45)
[2019-10-24] MEDS ORDERED: FLUORESCEIN (FLUOR-I-STRIPS) 1 MG STRP OU ONE (07:45)
--- NOTE | 2019-10-24 08:21 | ED EENT ---
History of Present Illness General Chief Complaint: Foreign Body Stated Complaint: R EYE PAIN Nursing Triage Note: PT STATES HE HAS SOMETHING IN HIS RIGHT EYE SINCE YESTERDAY. Source: patient Exam Limitations: no limitations History of Present Illness Date Seen by Provider: Oct 24, 2019 Time Seen by Provider: 08:14 Initial Comments This 24-year-old white male presents with a foreign body sensation in his right eye. Patient noted the sensation yesterday. He has tried washing and rubbing the eye without relief. Patient's foreign body sensation largely abated after he presented to the emergency department this morning. Patient denies loss of visual acuity. He denies purulent drainage from the eye. He denies any discomfort with his unaffected left eye. The patient works around dust and particulate matter but denies any definite event yesterday that was attributable to a discrete foreign body. Allergies and Home Medications Allergies Coded Allergies: No Known Drug Allergies (Unverified , 09/27/17) Home Medications No Active Prescriptions or Reported Meds Patient Home Medication List Home Medication List Reviewed: Yes Review of Systems Review of Systems Constitutional: no symptoms reported Eyes: See HPI, Foreign Body Sensation Ears: No Symptoms Reported Nose: no symptoms reported Mouth: no symptoms reported Throat: no symptoms reported Respiratory: no symptoms reported Cardiovascular: no symptoms reported Gastrointestinal: no symptoms reported Musculoskeletal: no symptoms reported Skin: no symptoms reported Neurological: No Symptoms Reported Hematologic/Lymphatic: No Symptoms Reported Immunological/Allergic: no symptoms reported Past Mqzwlpx-Vbgaoo-Pdlvdk Hx Past Med/Social Hx: Reviewed Nursing Past Med/Soc Hx Patient Social History Alcohol Use: Occasionally Uses Alcohol Beverage of Choice: Vodka Recreational Drug Use: Yes Drug of Choice: POT Smoking Status: Never a Smoker 2nd Hand Smoke Exposure: Yes Recent Foreign Travel: No Contact w/Someone Who Travel: No Recent Infectious Disease Expo: No Recent Hopitalizations: No Immunizations Up To Date Tetanus Booster (TDap): Less than 5yrs PED Vaccines UTD: Yes Seasonal Allergies Seasonal Allergies: Yes Past Medical History Surgeries: Yes (LEFT LEG SURGERY AFTER LAC) Respiratory: No Asthma, Pneumonia Currently Using CPAP: No Currently Using BIPAP: No Cardiac: Yes Hypertension, Hypotension Neurological: No Sexually Transmitted Disease: No HIV/AIDS: No Genitourinary: Yes Kidney Stones Gastrointestinal: No Musculoskeletal: No Endocrine: No HEENT: No Cancer: No Psychosocial: No Integumentary: No Blood Disorders: No Visual Acuity : Vision Acuity Degree: the patient's vision is unchanged. However he can only read the large E. Physical Exam Vital Signs Vital Signs - First Documented 10/24/19 07:30 Temp 37.0 Pulse 76 Resp 16 B/P (MAP) 139/67 (91) Pulse Ox 99 O2 Delivery Room Air Height, Weight, BMI Height: 6'1.00" Weight: 230lbs. oz. 104.529227sd; 27.00 BMI Method:Stated General Appearance: WD/WN, mild distress Eyes: right eye conjunctival inflammation Progress/Results/Core Measures Results/Orders My Orders Orders - JOSE FLOWERS MD Tetracaine 0.5% Ophth Radhika Sdv (Tetracai (10/24/19 07:45) Fluorescein Strips (Evsja-O-Cqakbf) (10/24/19 07:45) Balanced Salt Irrigation Soln (Bss Irrig (10/24/19 07:45) Medications Given in ED Current Medications Medications Dose Ordered Sig/Hunter Route Start Time Stop Time Status Last Admin Dose Admin Balanced Salt Solution 15 ml ONCE ONCE IR 10/24/19 07:45 10/24/19 07:51 DC 10/24/19 07:55 15 ML Fluorescein Sodium 1 mg ONCE ONCE OU 10/24/19 07:45 10/24/19 07:51 DC 10/24/19 07:56 1 MG Tetracaine HCl 1 OR 2 DROPS INTO AFFEC... ONCE ONCE OP 10/24/19 07:45 10/24/19 07:51 DC 10/24/19 07:56 4 ML Vital Signs/I&O 10/24/19 07:30 Temp 37.0 Pulse 76 Resp 16 B/P (MAP) 139/67 (91) Pulse Ox 99 O2 Delivery Room Air Blood Pressure Mean: 91 Progress Progress Note : Time: 08:24 Progress Note The patient's right eye exam demonstrated scleral injection laterally. However there was no evidence of a corneal abrasion or foreign body. The fluorescein exam was unremarkable. The upper and lower lid were everted and no foreign bodies were found. The eyelids irrigated with saline. Departure Impression Primary Impression: Irritation of right eye Disposition: 01 HOME, SELF-CARE Condition: Improved Departure-Patient Inst. Decision time for Depature: 08:25 [address]errals: [facility] NO,LOCAL PHYSICIAN (PCP) Primary Care Physician Patient Instructions: Conjunctivitis (Pinkeye) (DC) Add. Discharge Instructions: Vascon A eye drops today. Rest in a darkened room with sunglasses today. Follow up with me TOMORROW if needed. Return to the emergency department if the eye condition worsens today. Vascon All discharge instructions reviewed with patient and/or family. Voiced understanding. Scripts No Active Prescriptions or Reported Meds JOSE FLOWERS MD Oct 24, 2019 08:20
[2019-10-24 08:51] VITALS: BP 139/67
== END 2019-10-24 08:51 | disposition home or self-care (01) ==
LOC: EDUNIT# 07:04 → ER 07:05
DX: H57.89 Other specified disorders of eye and adnexa (principal); J45.909 Unspecified asthma, uncomplicated; I10 Essential (primary) hypertension; Z87.442 Personal history of urinary calculi; Z77.22 Contact with and (suspected) exposure to environmental tobacco smoke (acute) (chronic); Z87.01 Personal history of pneumonia (recurrent)
CPT/HCPCS: 99282

== ENCOUNTER 2021-09-05 14:44 | Emergency (ER) | payer BC, OTHER ==
[~2021-09-05] VITALS: Ht 188 cm; Wt 97.0 kg
--- NOTE | 2021-09-05 14:57 | ED GI ---
General Stated Complaint: VOMITTING BLOOD Source of Information: Patient Exam Limitations: No Limitations History of Present Illness Date Seen by Provider: Sep 05, 2021 Time Seen by Provider: 14:55 Initial Comments To ER by private vehicle from home with reports of vomiting blood this morning. For the past 2 months he has had nausea each morning but this morning was the first that he is vomited. Loose stools but not what he would consider diarrhea and denies any abdominal pain. He does report frequent acid reflux symptoms and takes no medications. Timing/Duration: Other Severity/Quality: Mild Location: Other Radiation: No Radiation Activities at Onset: None Associated Symptoms: Denies Symptoms Allergies and Home Medications Allergies Coded Allergies: No Known Drug Allergies (Unverified , 09/27/17) Patient Home Medication List Home Medication List Reviewed: Yes No Active Prescriptions or Reported Meds Review of Systems Review of Systems Constitutional: see HPI EENTM: No Symptoms Reported Respiratory: No Symptoms Reported Cardiovascular: No Symptoms Reported Gastrointestinal: See HPI Genitourinary: No Symptoms Reported Musculoskeletal: no symptoms reported Skin: no symptoms reported Psychiatric/Neurological: No Symptoms Reported Endocrine: No Symptoms Reported Past Btmzgwy-Cbqtjz-Yrpkrs Hx Immunizations Up To Date Tetanus Booster (TDap): Less than 5yrs PED Vaccines UTD: Yes Seasonal Allergies Seasonal Allergies: Yes Past Medical History Surgeries: Yes (LEFT LEG SURGERY AFTER LAC) Respiratory: No Asthma, Pneumonia Currently Using CPAP: No Currently Using BIPAP: No Cardiac: Yes Hypertension, Hypotension Neurological: No Sexually Transmitted Disease: No HIV/AIDS: No Genitourinary: Yes Kidney Stones Gastrointestinal: No Musculoskeletal: No Endocrine: No HEENT: No Cancer: No Psychosocial: No Integumentary: No Blood Disorders: No Physical Exam Vital Signs Vital Signs - First Documented 09/05/21 14:49 Temp 36.6 Pulse 94 Resp 20 B/P (MAP) 146/97 (113) Pulse Ox 97 O2 Delivery Room Air Capillary Refill : Height/Weight/BMI Height: 6'1.00" Weight: 230lbs. oz. 104.101814ev; 27.00 BMI Method:Stated General Appearance: WD/WN, no apparent distress HEENT: PERRL/EOMI, normal ENT inspection Neck: non-tender, full range of motion Respiratory: normal breath sounds, no respiratory distress, no accessory muscle use Cardiovascular: regular rate, rhythm, no murmur Gastrointestinal: normal bowel sounds, non tender, soft; No tenderness Extremities: normal range of motion, non-tender Neurologic/Psychiatric: alert, normal mood/affect, oriented x 3 Skin: normal color, warm/dry Progress/Results/Core Measures Results/Orders Lab Results Laboratory Tests Test 09/05/21 14:55 Range/Units White Blood Count 12.2 H 4.3-11.0 10^3/uL Red Blood Count 5.70 H 4.30-5.52 10^6/uL Hemoglobin 16.7 13.3-17.7 g/dL Hematocrit 49 40-54 % Mean Corpuscular Volume 86 80-99 fL Mean Corpuscular Hemoglobin 29 25-34 pg Mean Corpuscular Hemoglobin Concent 34 32-36 g/dL Red Cell Distribution Width 11.9 10.0-14.5 % Platelet Count 292 130-400 10^3/uL Mean Platelet Volume 9.2 9.0-12.2 fL Immature Granulocyte % (Auto) 0 % Neutrophils (%) (Auto) 74 42-75 % Lymphocytes (%) (Auto) 18 12-44 % Monocytes (%) (Auto) 7 0-12 % Eosinophils (%) (Auto) 1 0-10 % Basophils (%) (Auto) 0 0-10 % Neutrophils # (Auto) 9.0 H 1.8-7.8 X 10^3 Lymphocytes # (Auto) 2.2 1.0-4.0 X 10^3 Monocytes # (Auto) 0.9 0.0-1.0 X 10^3 Eosinophils # (Auto) 0.1 0.0-0.3 10^3/uL Basophils # (Auto) 0.0 0.0-0.1 10^3/uL Immature Granulocyte # (Auto) 0.0 0.0-0.1 10^3/uL Prothrombin Time 13.6 12.2-14.7 SEC INR Comment 1.0 0.8-1.4 Sodium Level 140 135-145 MMOL/L Potassium Level 3.9 3.6-5.0 MMOL/L Chloride Level 105 98-107 MMOL/L Carbon Dioxide Level 24 21-32 MMOL/L Anion Gap 11 5-14 MMOL/L Blood Urea Nitrogen 15 7-18 MG/DL Creatinine 1.06 0.60-1.30 MG/DL Estimat Glomerular Filtration Rate 87 BUN/Creatinine Ratio 14 Glucose Level 99 70-105 MG/DL Calcium Level 9.2 8.5-10.1 MG/DL Corrected Calcium 8.5-10.1 MG/DL Total Bilirubin 1.0 0.1-1.0 MG/DL Alkaline Phosphatase 52 40-136 U/L Total Protein 7.9 6.4-8.2 GM/DL Albumin 4.7 H 3.2-4.5 GM/DL My Orders Orders - ROSALIA MENESES APRN Protime With Inr (09/05/21 14:54) Cbc With Automated Diff (09/05/21 14:54) Comprehensive Metabolic Panel (09/05/21 14:54) Ed Iv/Invasive Line Start (09/05/21 14:54) Pantoprazole Injection (Protonix Injecti (09/05/21 15:00) Ondansetron Injection (Zofran Injectio (09/05/21 15:00) Medications Given in ED Current Medications Medications Dose Ordered Sig/Hunter Route Start Time Stop Time Status Last Admin Dose Admin Ondansetron HCl 8 mg ONCE ONCE IVP 09/05/21 15:00 09/05/21 15:01 DC 09/05/21 15:17 8 MG Pantoprazole 40 mg ONCE ONCE IV 09/05/21 15:00 09/05/21 15:01 DC 09/05/21 15:17 40 MG Vital Signs/I&O 09/05/21 14:49 Temp 36.6 Pulse 94 Resp 20 B/P (MAP) 146/97 (113) Pulse Ox 97 O2 Delivery Room Air Departure Impression Primary Impression: Hematemesis Disposition: HOME, SELF-CARE Condition: Stable Departure-Patient Inst. Decision time for Depature: 15:20 Referrals: NO,LOCAL PHYSICIAN (PCP/Family) Primary Care Physician Patient Instructions: Gastritis, Ulcer and Gastritis Diet Add. Discharge Instructions: 1. Follow-up with primary care on Tuesday. Return to ER for any concerns. Antacid as directed. Scripts Pantoprazole Sodium (Protonix) 40 Mg Tablet. 40 MG PO DAILY, #30 TAB Prov: ROSALIA MENESES APRN 09/05/21 Ondansetron (Ondansetron Odt) 8 Mg Tab.rapdis 8 MG PO Q6H PRN for NAUSEA/VOMITING, #20 TAB Prov: ROSALIA MENESES APRN 09/05/21 ROSALIA MENESES APRN Sep 05, 2021 14:57
[2021-09-05] MEDS ORDERED: ONDANSETRON 4 MG/2 ML (SDV) Z0FRAN IVP ONE (15:00)
[2021-09-05] MEDS ORDERED: PANTOPRAZOLE 40 MG (PROTONIX) VIAL IV ONE (15:00)
[2021-09-05 15:01] LABS: BASOPHILS % (AUTO) 0 % (0-10); EOSINOPHILS # (AUTO) 0.1 10^3/uL (0.0-0.3); EOSINOPHILS % (AUTO) 1 % (0-10); HEMATOCRIT 49 % (40-54); HEMOGLOBIN 16.7 g/dL (13.3-17.7); LYMPHOCYTES # (AUTO) 2.2 X 10^3 (1.0-4.0); LYMPHOCYTES % (AUTO) 18 % (12-44); MEAN CORPUSCULAR HEMOGLOBIN 29 pg (25-34); MEAN CORPUSCULAR HGB CONC 34 g/dL (32-36); MEAN CORPUSCULAR VOLUME 86 fL (80-99); MEAN PLATELET VOLUME 9.2 fL (9.0-12.2); MONOCYTES # (AUTO) 0.9 X 10^3 (0.0-1.0); MONOCYTES % (AUTO) 7 % (0-12); NEUTROPHILS % (AUTO) 74 % (42-75); PLATELET COUNT 292 10^3/uL (130-400); WHITE BLOOD COUNT 12.2 10^3/uL (4.3-11.0)
[2021-09-05 15:12] LABS: ALBUMIN 4.7 GM/DL (3.2-4.5); CHLORIDE 105 MMOL/L (98-107); POTASSIUM 3.9 MMOL/L (3.6-5.0); PROTHROMBIN TIME PATIENT 13.6 SEC (12.2-14.7); SODIUM 140 MMOL/L (135-145)
[2021-09-05 15:13] LABS: CALCIUM 9.2 MG/DL (8.5-10.1)
[2021-09-05 15:14] LABS: GLUCOSE 99 MG/DL (70-105); TOTAL PROTEIN 7.9 GM/DL (6.4-8.2)
[2021-09-05 15:15] LABS: CARBON DIOXIDE 24 MMOL/L (21-32)
[2021-09-05 15:18] LABS: ALKALINE PHOSPHATASE 52 U/L (40-136); CREATININE SERUM 1.06 MG/DL (0.60-1.30); GFR ESTIMATED 87
[2021-09-05 15:19] LABS: BUN/CREATININE RATIO 14
[2021-09-05 15:21] LABS: ALANINE AMINOTRANSFERASE 22 U/L (0-55)
[2021-09-05] MEDS ORDERED: ONDA8TAB13 PO (15:21)
[2021-09-05] MEDS ORDERED: PANT40TA2 PO (15:21)
[2021-09-05 15:39] VITALS: BP 132/94
== END 2021-09-05 15:39 | disposition home or self-care (01) ==
LOC: EDUNIT# 14:44 → ER 14:46
DX: K92.0 Hematemesis (principal); J45.909 Unspecified asthma, uncomplicated; I10 Essential (primary) hypertension
CPT/HCPCS: 36415; 80053; 85025; 85610